=== PATIENT | female | born 2000 | race Caucasian/White ===

== ENCOUNTER 2024-01-12 00:12 | Emergency (ER) | payer OTHER ==
[~2024-01-12] VITALS: Ht 165.1 cm; Wt 69.8 kg
[2024-01-12 00:14] VITALS: BP 142/86; TEMP 97.7; O2SAT 100
[2024-01-12] MEDS ORDERED: CEFU50TA PO (02:44)
[2024-01-12] MEDS ORDERED: AZO-95TA3 PO (02:44)
[2024-01-12] MEDS ORDERED: CEFUROXIME 500 MG TAB PO ONE (02:45)
[2024-01-12] MEDS: CEFUROXIME 500 MG TAB PO STA (02:45)
[2024-01-12] MEDS ORDERED: PHENAZOPYRIDINE 100 MG TAB PO ONE (02:45)
[2024-01-14] MEDS ORDERED: SULF1TAB23 PO (10:39)
== END 2024-01-12 03:45 | disposition home or self-care (01) ==
LOC: M ED 00:12
DX: N30.01 Acute cystitis with hematuria (principal); Z79.899 Other long term (current) drug therapy